=== PATIENT | male | born 1955 | race Caucasian/White ===

== ENCOUNTER 2018-11-24 05:43 | Outpatient (CLI) | payer BC, OTHER ==
[~2018-11-24] VITALS: Ht 180.3 cm; Wt 96.2 kg
[2018-11-24] MEDS ORDERED: LISI40TA PO (11:41)
[2018-11-24] MEDS ORDERED: METF-399 PO (11:41)
[2018-11-24] MEDS ORDERED: ATOR10TA66 PO (11:41)
== END 2018-11-24 12:01 | disposition home or self-care (01) ==
LOC: PREOP 05:43
PROVIDERS: ATTEND Surgery
DX: Z01.818 Encounter for other preprocedural examination (principal)

== ENCOUNTER 2018-11-27 08:24 | Day surgery (SDC) | payer BC, OTHER ==
[~2018-11-27] VITALS: Ht 180.3 cm; Wt 96.2 kg
[2018-11-27] VITALS (10 sets, daily range): BP systolic 110–163; BP diastolic 60–99
[~2018-11-27 08:24] MED LIST: ATOR10TA66 PO; LISI40TA PO; METF-399 PO
--- OUTSIDE RECORDS SUMMARY | 2018-11-27 08:29 | XMS REPORT | Clinical Summary ---
Author Author Admin, QIE Organization [facility] Address Unknown Phone Unavailable Allergies, Adverse Reactions, Alerts Allergy Name Reaction Description Start Date Severity Status Provider SULFA rash Moderate Active Carrie Elder PENICILLIN rash Moderate Active Carrie Elder Conditions or Problems Problem Name Problem Code Onset Date Status Entry Date Provider Comment Standard Description Annotate Elevated prostate specific antigen [PSA] 790.93 Active Renetta Bach MD Elevated prostate specific antigen [PSA] Medication List Medication Instructions Start Date Stop Date Generic Name NDC Status Provider Patient Instruction PREDNISONE 10 MG ORAL TABLET 1 tab by mouth daily PREDNISONE 29673159210 No Longer Active Renetta Bach MD Active DOXYCYCLINE HYCLATE 100 MG ORAL CAPSULE 1 cap by mouth twice daily DOXYCYCLINE HYCLATE 51782707487 No Longer Active Renetta Bach MD Active IBUPROFEN 200 MG ORAL TABLET 1 tab by mouth every 6 hours prn IBUPROFEN 93523004835 Active Carrie Elder Active ATORVASTATIN CALCIUM 40 MG ORAL TABLET 1 nightly, for cholesterol ATORVASTATIN CALCIUM 74837601961 Active Carrie Elder Active LISINOPRIL 10 MG ORAL TABLET 1 tablet by mouth daily LISINOPRIL 18017733928 Active Carrie Elder Active DOXYCYCLINE HYCLATE 100 MG ORAL CAPSULE 1 cap by mouth twice daily DOXYCYCLINE HYCLATE 100 MG ORAL CAPSULE 2550542 DOXYCYCLINE HYCLATE Inactive PREDNISONE 10 MG ORAL TABLET 1 tab by mouth daily PREDNISONE 10 MG ORAL TABLET 033568 PREDNISONE Inactive Vital Signs Date Name Value Unit Range Description blood pressure, diastolic 76 mm[Hg] BP cervantes blood pressure, systolic 146 mm[Hg] BP sys pulse rate E&M 76 /min Heart rate temperature E&M 98.2 [degF] Body temperature weight E&M 212 [lb_av] Weight Measured blood pressure, diastolic 94 mm[Hg] BP cervantes blood pressure, systolic 176 mm[Hg] BP sys pulse rate E&M 75 /min Heart rate temperature E&M 97.5 [degF] Body temperature weight E&M 212 [lb_av] Weight Measured blood pressure, diastolic 80 mm[Hg] BP cervantes blood pressure, systolic 120 mm[Hg] BP sys height E&M 71 [in_us] Bdy height pulse rate E&M 85 /min Heart rate temperature E&M 98.8 [degF] Body temperature weight E&M 217 [lb_av] Weight Measured Diagnostic Results Date Name Value Unit Range Description Chart Maintenance: Outside labs entered on Flowsheet - Chemistry prostate specific antigen 3.1 ng/mL Encounters Code Encounter Date Provider Facility CPT-29450 Level 2 Est. 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
--- OUTSIDE RECORDS SUMMARY | 2018-11-27 08:29 | XMS REPORT | Clinical Summary ---
Author Author Admin, NOLBERTO Organization [facility] Address Unknown Phone Unavailable Allergies, Adverse Reactions, [...] TABLET 1 tab by mouth daily PREDNISONE 14334237623 No Longer Active Renetta Bach MD Active DOXYCYCLINE HYCLATE 100 MG ORAL CAPSULE 1 cap by mouth twice daily DOXYCYCLINE HYCLATE 31795940521 No Longer Active Renetta Bach MD Active IBUPROFEN 200 MG ORAL TABLET 1 tab by mouth every 6 hours prn IBUPROFEN 68210414602 Active Carrie Elder Active ATORVASTATIN CALCIUM 40 MG ORAL TABLET 1 nightly, for cholesterol ATORVASTATIN CALCIUM 67620311850 Active Carrie Elder Active LISINOPRIL 10 MG ORAL TABLET 1 tablet by mouth daily LISINOPRIL 81157643522 Active Carrie Elder Active DOXYCYCLINE HYCLATE 100 MG ORAL CAPSULE 1 cap by mouth twice daily DOXYCYCLINE HYCLATE 100 MG ORAL CAPSULE 0108123 DOXYCYCLINE HYCLATE Inactive PREDNISONE 10 MG ORAL TABLET 1 tab by mouth daily PREDNISONE 10 MG ORAL TABLET 616643 PREDNISONE Inactive Vital Signs Date Name Value Unit Range Description blood pressure, diastolic 94 mm[Hg] BP cervantes [...] ng/mL Encounters Code Encounter Date Provider Facility CPT-84801 Level 3 New Patient 15:21:19 CDT J Maurilio Bach MD [facility] Procedures Code Procedure Name Date Entry Date Standard Description CPT-88167 Needle Biopsy - Prostate 20:57:40 CDT CPT-99465 Ultrasound - Prostatic for Bx 20:57:39 CDT
--- OUTSIDE RECORDS SUMMARY | 2018-11-27 08:29 | XMS REPORT | Clinical Summary ---
Author Author Admin, QIE Organization [facility] Address Unknown Phone Unavailable Allergies, Adverse Reactions, [...] Status Provider Patient Instruction PREDNISONE 10 MG TAB 1 tab by mouth daily PREDNISONE 88937196958 No Longer Active Renetta Bach MD Active DOXYCYCLINE HYCLATE 100 MG CAP 1 cap by mouth twice daily DOXYCYCLINE HYCLATE 09562195227 No Longer Active Renetta Bach MD Active IBUPROFEN 200 MG TAB 1 tab by mouth every 6 hours prn IBUPROFEN 52037894248 Active Carrie Elder Active ATORVASTATIN CALCIUM 40 MG TABS 1 nightly, for cholesterol ATORVASTATIN CALCIUM 36789322433 Active Carrie Elder Active LISINOPRIL 10 MG TABS 1 tablet by mouth daily LISINOPRIL 22263225815 Active Carrie Elder Active DOXYCYCLINE HYCLATE 100 MG CAP 1 cap by mouth twice daily DOXYCYCLINE HYCLATE 100 MG CAP 6327354 DOXYCYCLINE HYCLATE Inactive PREDNISONE 10 MG TAB 1 tab by mouth daily PREDNISONE 10 MG TAB 316934 PREDNISONE Inactive Vital Signs Date Name Value Unit Range Description blood pressure, diastolic - 8462-4 94 mm[Hg] BP cervantes blood pressure, systolic - 8480-6 176 mm[Hg] BP sys pulse rate E&M - 8867-4 75 /min Heart rate temperature E&M 97.5 [degF] Body temperature weight E&M - 3141-9 212 [lb_av] Weight Measured blood pressure, diastolic - 8462-4 80 mm[Hg] BP cervantes blood pressure, systolic - 8480-6 120 mm[Hg] BP sys height E&M - 8302-2 71 [in_us] Bdy height pulse rate E&M - 8867-4 85 /min Heart rate temperature E&M 98.8 [degF] Body temperature weight E&M - 3141-9 217 [lb_av] Weight Measured Encounters Code Encounter Date Provider Facility CPT-30049 Level 3 New Patient 15:21:19 CDT J Maurilio Bach MD [facility] Procedures Code Procedure Name Date Entry Date Standard Description CPT-58824 Needle Biopsy - Prostate 20:57:40 CDT CPT-61701 Ultrasound - Prostatic for Bx 20:57:39 CDT
--- OUTSIDE RECORDS SUMMARY | 2018-11-27 08:29 | XMS REPORT | Clinical Summary ---
Author Author Admin, QIE Organization [facility] Address Unknown Phone Unavailable Allergies, [...] TAB 1 tab by mouth daily PREDNISONE 03741207918 No Longer Active Renetta Bach MD Active DOXYCYCLINE HYCLATE 100 MG CAP 1 cap by mouth twice daily DOXYCYCLINE HYCLATE 78415861631 No Longer Active Renetta Bach MD Active IBUPROFEN 200 MG TAB 1 tab by mouth every 6 hours prn IBUPROFEN 51346798817 Active Carrie Elder Active ATORVASTATIN CALCIUM 40 MG TABS 1 nightly, for cholesterol ATORVASTATIN CALCIUM 30473151427 Active Carrie Elder Active LISINOPRIL 10 MG TABS 1 tablet by mouth daily LISINOPRIL 53403691960 Active Carrie Elder Active DOXYCYCLINE HYCLATE 100 MG CAP 1 cap by mouth twice daily DOXYCYCLINE HYCLATE 100 MG CAP 5995303 DOXYCYCLINE HYCLATE Inactive PREDNISONE 10 MG TAB 1 tab by mouth daily PREDNISONE 10 MG TAB 084853 PREDNISONE Inactive Vital Signs Date Name Value Unit Range Description blood pressure, diastolic - 8462-4 80 mm[Hg] BP cervantes blood pressure, systolic - 8480-6 120 mm[Hg] BP sys height E&M - 8302-2 71 [in_us] Bdy height pulse rate E&M - 8867-4 85 /min Heart rate temperature E&M 98.8 [degF] Body temperature weight E&M - 3141-9 217 [lb_av] Weight Measured Encounters Code Encounter Date Provider Facility CPT-89892 Level 3 New Patient 15:21:19 CDT J Maurilio Bach MD [facility] Procedures Code Procedure Name Date Entry Date Standard Description CPT-80853 Needle Biopsy - Prostate 20:57:40 CDT CPT-61451 Ultrasound - Prostatic for Bx 20:57:39 CDT
--- OUTSIDE RECORDS SUMMARY | 2018-11-27 08:29 | XMS REPORT | Clinical Summary ---
Demographics Home Phone Preferred Language Unknown Marital Status Unknown Gnosticist Affiliation Unknown Race Unknown Ethnic Group Unknown Author Author Admin, [facility] Organization [facility] Address Unknown Phone Unavailable Allergies, Adverse Reactions, Alerts Allergy Name Reaction Description Start Date Severity Status Provider SULFA rash Moderate Active Carrie Elder PENICILLIN rash Moderate Active Carrie Elder Conditions or Problems Problem Name Problem Code Onset Date Status Entry Date Provider Comment Standard Description Annotate Problems Unknown Active Medication List Medication Instructions Start Date Stop Date Generic Name NDC Status Provider Patient Instruction IBUPROFEN 200 MG TAB 1 tab by mouth every 6 hours prn IBUPROFEN 33933812310 Active Carrie Elder Active ATORVASTATIN CALCIUM 40 MG TABS 1 nightly, for cholesterol ATORVASTATIN CALCIUM 93004585998 Active Carrie Elder Active LISINOPRIL 10 MG TABS 1 tablet by mouth daily LISINOPRIL 66679083860 Active Carrie Elder Active DOXYCYCLINE HYCLATE 100 MG CAP 1 cap by mouth twice daily DOXYCYCLINE HYCLATE 28360941071 Active Carrie Elder Active PREDNISONE 10 MG TAB 1 tab by mouth daily PREDNISONE 46999234416 Active Carrie Elder Active
--- OUTSIDE RECORDS SUMMARY | 2018-11-27 08:30 | XMS REPORT | Clinical Summary ---
Author Author Admin, NOLBERTO Organization [facility] Address Unknown Phone Unavailable Allergies, Adverse Reactions, [...] TABLET 1 tab by mouth daily PREDNISONE 77304054108 No Longer Active Renetta Bach MD Active DOXYCYCLINE HYCLATE 100 MG ORAL CAPSULE 1 cap by mouth twice daily DOXYCYCLINE HYCLATE 23808599316 No Longer Active Renetta Bach MD Active IBUPROFEN 200 MG ORAL TABLET 1 tab by mouth every 6 hours prn IBUPROFEN 54947285455 Active Carrie Elder Active ATORVASTATIN CALCIUM 40 MG ORAL TABLET 1 nightly, for cholesterol ATORVASTATIN CALCIUM 51220634069 Active Carrie Elder Active LISINOPRIL 10 MG ORAL TABLET 1 tablet by mouth daily LISINOPRIL 70506693170 Active Carrie Elder Active DOXYCYCLINE HYCLATE 100 MG ORAL CAPSULE 1 cap by mouth twice daily DOXYCYCLINE HYCLATE 100 MG ORAL CAPSULE 0042508 DOXYCYCLINE HYCLATE Inactive PREDNISONE 10 MG ORAL TABLET 1 tab by mouth daily PREDNISONE 10 MG ORAL TABLET 277888 PREDNISONE Inactive Vital Signs Date Name Value [...] ng/mL Encounters Code Encounter Date Provider Facility CPT-63432 Level 2 Est. 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
--- OUTSIDE RECORDS SUMMARY | 2018-11-27 08:30 | XMS REPORT | Continuity of Care Document ---
Author Organization Unknown Address Unknown Allergies There is no data. Medications There is no data. Problems There is no data. Procedures There is no data. Results There is no data. Encounters ACCT No. Visit Date/Time Discharge Status Pt. Type Provider Facility Loc./Unit Complaint [id number] 04/13/2017 10:19:00 [facility] Unknown [email or web address] 09/27/2016 14:41:32 ACT Document Registration
--- OUTSIDE RECORDS SUMMARY | 2018-11-27 08:30 | XMS REPORT | Clinical Summary ---
Author Author Admin, NOLBERTO Organization [facility] Address Unknown Phone Unavailable Allergies, [...] TABLET 1 tab by mouth daily PREDNISONE 29807165180 No Longer Active Renetta Bach MD Active DOXYCYCLINE HYCLATE 100 MG ORAL CAPSULE 1 cap by mouth twice daily DOXYCYCLINE HYCLATE 90498216262 No Longer Active Renetta Bach MD Active IBUPROFEN 200 MG ORAL TABLET 1 tab by mouth every 6 hours prn IBUPROFEN 50712174584 Active Carrie Elder Active ATORVASTATIN CALCIUM 40 MG ORAL TABLET 1 nightly, for cholesterol ATORVASTATIN CALCIUM 68709463826 Active Carrie Elder Active LISINOPRIL 10 MG ORAL TABLET 1 tablet by mouth daily LISINOPRIL 01423414719 Active Carrie Elder Active DOXYCYCLINE HYCLATE 100 MG ORAL CAPSULE 1 cap by mouth twice daily DOXYCYCLINE HYCLATE 100 MG ORAL CAPSULE 9646878 DOXYCYCLINE HYCLATE Inactive PREDNISONE 10 MG ORAL TABLET 1 tab by mouth daily PREDNISONE 10 MG ORAL TABLET 692567 PREDNISONE Inactive Vital Signs Date Name Value [...] ng/mL Encounters Code Encounter Date Provider Facility CPT-36282 Level 2 Est. Patient 14:28:27 CLIENT LIAISON Renetta Bach MD [facility] CPT-36789 Level 3 New Patient 15:21:19 CDT Renetta Bach MD [facility] Procedures Code Procedure Name Date Entry Date Standard Description CPT-23854 Needle Biopsy - Prostate 20:57:40 CDT CPT-70028 Ultrasound - Prostatic for Bx 20:57:39 CDT
[2018-11-27] MEDS ORDERED: CLINDAMYCIN 600 MG/50 ML IVPB 50 ML IV ONE ×2 (08:41→09:00)
[2018-11-27] MEDS ORDERED: LACTATED RINGERS 1,000 ML IV PRN (08:57)
--- NOTE | 2018-11-27 10:02 | Progress Note-Pre Operative ---
Pre-Operative Progress Note H&P Reviewed The H&P was reviewed, patient examined and no changes noted. Time Seen by Provider: 09:59 Date H&P Reviewed: Nov 27, 2018 Time H&P Reviewed: 10:00 Pre-Operative Diagnosis: Incarcerated right inguinal hernia SHANI GUERRERO DO Nov 27, 2018 10:02
[2018-11-27] MEDS ORDERED: BUP/EPI 0.5% 1:200,000 (MARCAINE) 10ML VIAL IJ ONE (10:12)
[2018-11-27] MEDS ORDERED: MIDAZOLAM 2 MG/2 ML (VERSED) VIAL ONE (10:36)
[2018-11-27] MEDS ORDERED: proPOfol 200 MG/20 ML (DIPRIVAN) VIAL IV ONE (10:36)
[2018-11-27] MEDS ORDERED: LIDOCAINE PF 2% 5 ML (XYLOCAINE) VIAL ONE (10:36)
[2018-11-27] MEDS ORDERED: fentaNYL INJECTION 100 MCG/2 ML AMP ONE (10:37)
[2018-11-27] MEDS ORDERED: ONDANSETRON 4 MG/2 ML (SDV) Z0FRAN ONE (11:32)
[2018-11-27] MEDS ORDERED: SEVOFLURANE (ULTANE) 15 ML INHAL SOLN ONE ×2 (11:32→11:42)
--- NOTE | 2018-11-27 11:35 | Progress Note-Post Operative ---
Post-Operative Progess Note Surgeon (s)/Finance Intern (s) Surgeon SHANI GUERRERO DO Finance Intern: none Pre-Operative Diagnosis Incarcerated right inguinal hernia Post-Operative Diagnosis same Procedure & Operative Findings Date of Procedure 11/27/18 Procedure Performed/Findings RI with mesh placement Anesthesia Type GET Estimated Blood Loss Estimated blood loss (mL): scant Specimens/Packing Specimens Removed hernia sac SHANI GUERRERO DO Nov 27, 2018 11:35
[2018-11-27] MEDS ORDERED: ACHD5005 PO (11:36)
--- NOTE | 2018-11-27 11:37 | Discharge Inst-Surgical ---
Discharge Inst-Surgical Depart Medication/Instructions New, Converted or Re-Newed RX: RX Given to Pt/Family Patient Instructions Follow up Appt: Make appointment for 2 weeks. [phone] Instructions: No lifting greater than 20 pounds. No strenuous activity. May shower in 24 hours, no tub bath or soaking. Use incentive spirometer at home as directed. No Smoking Skin/Wound Care: May remove bandages in am. You need to leave the Dermabond on incision it will fall off on it's own. Symptoms to Report: Appetite Changes, Extremity Discoloration, Numbness/Tingling, Swelling Increased, Bleeding Excessive, Eyesight Changes, Pain Increased, Urine Color Change, Constipation(Persistent), Fever over 101 degree F, Pain/Pressure in chest, Urinating Difficulty, Cough Up/Vomit Blood, Heart Beat Irreg/Pounding, Pain/Pressure in jaw, Cramps in feet or legs, Lightheadedness, Pain/Pressure in shoulder, Diarrhea(Persistent), Memory Changes Suddenly, Questions/Concerns, Weight gain consecutive days, Dizziness/Fainting, Nausea/Vomiting, Shortness of Breath, Weight gain over 2 pounds If questions or concerns contact your physician Or seek help at emergency department. Activity Activity as Tolerated: Yes Activity Instructions: Avoid Stress to Incision Driving Instructions: No Driving/Refer to Dr. Rhodes Discharge Diet: No Restrictions Diet After 24 Hours: Clear Liquid if Nauseous If Any Problems/Questions/Issu: Contact Your Physician, Go to Emergency Room Skin/Wound Care Infection Signs and Symptoms: Increased Redness, Foul Odor of Wound, Increased Drainage, Skin Itchy or Has a Rash, Increased Swelling, Temperature Above 101 F Bathing Instructions: Shower Stitches/[place]/Dermabond Dis: Dermabond Ice Pack: Ice On and Off Site (as needed for pain) SHANI GUERRERO DO Nov 27, 2018 11:37
[2018-11-27] MEDS ORDERED: morphine INJ 10 MG/ML 1ML (SYR OR VIAL) IVP ONE (11:45)
[2018-11-27] MEDS ORDERED: PROMETHAZINE INJ 25 MG/ML (PHENERGAN) AMP IVP ONE (11:45)
[2018-11-27] MEDS ORDERED: HYDROmorphone 2 MG/ML VIAL (DILAUDID) IV ONE (11:45)
[2018-11-27] MEDS ORDERED: ONDANSETRON 4 MG/2 ML (SDV) Z0FRAN IVP PRN (11:45)
--- NOTE | 2018-11-27 12:45 | Anesthesia-General Post-Op ---
General Patient Condition Mental Status/LOC: Same as Preop Cardiovascular: Satisfactory Nausea/Vomiting: Absent Respiratory: Satisfactory Pain: Controlled Complications: Absent Post Op Complications Complications None Follow Up Care/Instructions Patient Instructions None needed. Anesthesia/Patient Condition Patient Condition Patient is doing well, no complaints, stable vital signs, no apparent adverse anesthesia problems. No complications reported per nursing. SUSAN MAHAJAN CRNA Nov 27, 2018 12:45
[2018-11-27] MEDS ORDERED: HYDROcodone/APAP 5 MG/325 MG (LORTAB) TAB PO ONE (13:15)
--- NOTE | 2018-11-27 14:30 | OPERATIVE REPORT ---
DATE OF SERVICE: PREOPERATIVE DIAGNOSIS: Incarcerated right inguinal hernia. POSTOPERATIVE DIAGNOSIS: Incarcerated right inguinal hernia. Indirect with direct component. PROCEDURE: Right inguinal herniorrhaphy with mesh placement. SURGEON: Carl Patrick DO. CHEMICAL DEPENDENCY NURSE: None. ANESTHESIA: General endotracheal tube. SPECIMEN: Hernia sac. BLOOD LOSS: Scant. FLUIDS: Per anesthesia. POSTOPERATIVE CONDITION: Stable. INDICATION FOR PROCEDURE: The patient is a 63-year-old male with complaint of bulging and pain in right inguinal region, diagnosed incarcerated inguinal hernia. FINDINGS: The patient had an incarcerated indirect inguinal hernia. He also had a little bit of a direct floor component. PROCEDURE NOTE: After informed consent was obtained, the patient was brought to the operating room, placed on the table in supine position, sterilely prepped and draped in normal fashion. Local lidocaine was used to perform ilioinguinal nerve block as well as pubic tubercle block and infiltrated the right inguinal region with local, then made an incision with #15 blade, carried down through the skin into subcutaneous tissue, deepened down to subcutaneous tissue with Bovie electrocautery down to the fascia of the external oblique. External oblique fascia was then infiltrated with local and incised to the external inguinal ring with Bovie electrocautery, then able to grasp the 2 edges with hemostats and dissected under them bluntly with a finger to create a space, then able to get under the cord and cord structures at the pubic tubercle. Got under them, placed a Joe drain, pulled this in inferolateral direction, found the indirect inguinal hernia, carefully peeled this off the cord and cord structures, opened it up, pushed the fat back in. This was an incarcerated inguinal hernia and then suture ligated with 0 Vicryl and then tied with 0 Vicryl, then closed the floor of the inguinal canal with 2-0 Vicryl 3 interrupted [id number] sutures to close this and then elected to place a right-sided Parietex mesh, trimmed to fit in the inguinal canal, then sutured the mesh at the pubic tubercle, encircled the cord with a precut hole and then placed the mesh up under the external oblique fascia, laid in nicely, copiously irrigated with normal saline, suctioned this out and then elected to close the external oblique fascia with a 3-0 Vicryl running suture, thereby recreating external inguinal ring and internal inguinal ring had been recreated with the mesh, then closed Cosmo's fascia with 3-0 Vicryl, 2 interrupted sutures, then closed the skin with 4-0 undyed Monocryl in running subcuticular fashion. Area was cleaned and dried. Dermabond placed and then a dressing. The patient tolerated the procedure. Sponge, instrument and needle count correct at the end of the case. Job ID: [id number] DocumentID: [id number] Dictated Date: 11/27/2018 11:33:53 Life Sciences Manager Date: 11/27/2018 14:29:08 Dictated By: DO JESSE FARIAS
== END 2018-11-27 13:30 | disposition home or self-care (01) ==
LOC: SDC 08:24
PROVIDERS: ATTEND Surgery
DX: K40.30 Unilateral inguinal hernia, with obstruction, without gangrene, not specified as recurrent (principal); K42.9 Umbilical hernia without obstruction or gangrene; I10 Essential (primary) hypertension; K21.9 Gastro-esophageal reflux disease without esophagitis; E11.9 Type 2 diabetes mellitus without complications; E66.9 Obesity, unspecified; Z68.29 Body mass index [BMI] 29.0-29.9, adult; Z90.49 Acquired absence of other specified parts of digestive tract; Z79.84 Long term (current) use of oral hypoglycemic drugs; Z79.899 Other long term (current) drug therapy; Z88.0 Allergy status to penicillin; Z88.2 Allergy status to sulfonamides; Z80.9 Family history of malignant neoplasm, unspecified; Z87.891 Personal history of nicotine dependence; Z87.442 Personal history of urinary calculi
CPT/HCPCS: 82962; 87081; 88302

== ENCOUNTER → 2020-09-08 | Outpatient (CLI) | payer BC ==
[~2020-09-08] MED LIST changes: +ACHD5005 PO; -LISI40TA PO; +LISI40TA9 PO
--- NOTE | 2020-09-08 14:10 | Diagnostic Imaging Report ---
INDICATION: Fall with left shoulder pain AP, oblique and lateral views of the left shoulder are obtained. FINDINGS: No acute fracture or dislocation is identified. No abnormal lytic or sclerotic focus is seen, and there is no radiopaque foreign body. IMPRESSION: No acute abnormality. Dictated by: Dictated on workstation # [id number]
== END ==
LOC: RAD FS 13:18
PROVIDERS: ATTEND Nurse Practitioner
DX: M25.512 Pain in left shoulder (principal); W19.XXXA Unspecified fall, initial encounter
CPT/HCPCS: 73030

== ENCOUNTER → 2020-09-16 | Outpatient (CLI) | payer BC ==
[~2020-09-16] MED LIST changes: +GADOBUTROL 15 MMOL/15 ML (GADAVIST) VIAL IV ONE; +HOLD METFORMIN - RECEIVED CONTRAST 20 ML VIAL IV SCH; +IOHEXOL 300 MG/ML 50 ML (OMNIPAQUE 300) VIAL IV ONE
--- NOTE | 2020-09-16 10:55 | Diagnostic Imaging Report ---
INDICATION: Pre-MRI screening AP and lateral view of the orbits obtained at 1009 a.m. There is no metallic foreign body over the orbits. There is no overt bony abnormality. IMPRESSION: No metallic foreign body over the orbits. Dictated by: Dictated on workstation # [id number]
--- NOTE | 2020-09-16 11:44 | Diagnostic Imaging Report ---
INDICATION: Left shoulder pain. Patient was brought to the procedure room and placed on table in the supine position. Skin of left shoulder was prepped and draped in usual sterile fashion. Small amount of 1% lidocaine was utilized for local anesthesia. A 22-gauge needle was advanced into left shoulder at the rotator interval. A 15 mL solution of iodinated contrast, normal saline and gadolinium was injected under fluoroscopic observation. Needle was withdrawn and hemostasis was obtained using manual compression. Patient tolerated the procedure well and was sent to MRI in satisfactory condition. 13 seconds of fluoroscopic time utilized. A single image was obtained. IMPRESSION: Successful left shoulder injection of gadolinium contrast solution, using fluoroscopy. Dictated by: Dictated on workstation # [id number]
--- NOTE | 2020-09-16 15:08 | Diagnostic Imaging Report ---
EXAMINATION: Magnetic resonance imaging of the left shoulder with intra-articular contrast. DATE: September 16, 2020. COMPARISON: Left shoulder arthrogram 12/17/2020. Left shoulder radiographs 09/08/2020. HISTORY: 65-year-old male, left shoulder injury 2 weeks ago. Left shoulder pain. TECHNIQUE: Magnetic Resonance Imaging sequences were performed of the shoulder following the intra-articular administration of contrast. FINDINGS: ROTATOR CUFF, LIGAMENTS, TENDONS, AND MUSCLES: There is supraspinatus tendinopathy. The infraspinatus and teres minor tendons are intact. The subscapularis tendon is intact. There is normal rotator cuff muscle bulk and signal. LONG HEAD OF BICEPS: The biceps labral attachment and long head of the biceps tendon is intact. The long head of the biceps tendon is normally positioned within the bicipital groove. GLENOHUMERAL JOINT: The humeral head is normally positioned relative to the glenoid. The labrum is intact. There is no identified paralabral cyst. The articular cartilage is grossly intact. There is no intra-articular body or prominent synovitis. ACROMIOCLAVICULAR JOINT: The acromioclavicular joint is normally aligned. The coracoclavicular and coracoacromial ligaments are intact. There are mild acromioclavicular degenerative changes without large undersurface osteophyte. BONE: There is no os acromiale. There is no Hill-Sachs deformity. There is a degenerative related subchondral cyst in the distal clavicle. There is a benign subcortical cyst in the lesser tuberosity of the proximal humerus. There is no acute fracture, bone contusion, or evidence of osteonecrosis. BURSAE AND SOFT TISSUES: The bursae and soft tissue surrounding the shoulder are unremarkable. IMPRESSION: 1. Supraspinatus tendinopathy. Negative for rotator cuff tendon tear. 2. Mild acromioclavicular degenerative changes without undersurface osteophyte. 3. Intact proximal long head of the biceps tendon. 4. No acute fracture, bone contusion, or evidence of osteonecrosis. 5. Intact labrum and unremarkable additional evaluation of the glenohumeral joint. Dictated by: Dictated on workstation # [id number]
== END ==
LOC: RAD 09:27
PROVIDERS: ATTEND Nurse Practitioner
DX: M19.012 Primary osteoarthritis, left shoulder (principal); M75.82 Other shoulder lesions, left shoulder
CPT/HCPCS: 23350; 73040; 73222

== ENCOUNTER 2023-02-13 05:36 | Outpatient (CLI) | payer MEDICARE ==
[~2023-02-13] VITALS: Ht 180.3 cm; Wt 99.9 kg
[~2023-02-13 05:36] MED LIST changes: -GADOBUTROL 15 MMOL/15 ML (GADAVIST) VIAL IV ONE; -HOLD METFORMIN - RECEIVED CONTRAST 20 ML VIAL IV SCH; -IOHEXOL 300 MG/ML 50 ML (OMNIPAQUE 300) VIAL IV ONE
[2023-02-13] MEDS ORDERED: PANT40TA52 PO (10:47)
[2023-02-13] MEDS ORDERED: ATOR40TA70 PO (10:47)
[2023-02-13] MEDS ORDERED: MELO7.5T46 PO (10:47)
[2023-02-13] MEDS ORDERED: GLIM2TAB4 PO (10:47)
[2023-02-13] MEDS ORDERED: METF-865 PO (10:47)
[2023-02-13] MEDS ORDERED: TMSL.4C PO (10:47)
[2023-02-13] MEDS ORDERED: LISI10TA25 PO (10:47)
== END 2023-02-13 10:50 | disposition home or self-care (01) ==
LOC: PREOP 05:36
PROVIDERS: ATTEND Surgery
DX: Z01.818 Encounter for other preprocedural examination (principal)

== ENCOUNTER 2023-02-25 07:33 | Day surgery (SDC) | payer BC, MEDICARE ==
[~2023-02-25] VITALS: Ht 180.3 cm; Wt 99.9 kg
[~2023-02-25 07:33] MED LIST changes: +ATOR40TA70 PO; +GLIM2TAB4 PO; +LISI10TA25 PO; +MELO7.5T46 PO; +METF-865 PO; +PANT40TA52 PO; +TMSL.4C PO
[2023-02-25] MEDS ORDERED: LACTATED RINGERS 1,000 ML 1,000 ML IV STA (07:36)
[2023-02-25 08:00] VITALS: BP 180/98
[2023-02-25] MEDS ORDERED: MIDAZOLAM INJ 2 MG/2 ML VIAL ONE (09:29)
[2023-02-25 10:00] VITALS: BP 100/57
--- NOTE | 2023-02-25 10:01 | Endoscopy Discharge Instruct ---
Endo Procedure/Findings Findings 1.: Polyp 2.: Diverticulosis 3.: Internal Hemorrhoids Discharge Instructions - Activity: You might feel a little sleepy until tomorrow. This is due to the medicine you received to relax you. Until tomorrow, you should: NOT drive a car, operate machinery or power tools. NOT drink any alcoholic beverages. NOT make any important decisions or sign importortant papers. Do not return to work until tomorrow, unless otherwise instructed. Resume previous activities tomorrow. Diet: Start by taking liquids. If you tolerate liquids, advance to solid food. 1.: Colonscopy in 5 years Notify Physician - If you experience excessive bleeding, unusual abdominal pain, fever, or chest pain, contact your doctor immediately. Follow-Up: Other Follow up in my office in one week SHANI GUERRERO DO Feb 25, 2023 10:01
--- NOTE | 2023-02-25 10:01 | Progress Note-Post Operative ---
Post-Operative Progess Note Surgeon (s)/Correspondence Renew Clerk (s) Surgeon SHANI GUERRERO DO Correspondence Renew Clerk: none Pre-Operative Diagnosis screening Post-Operative Diagnosis Polyps Diverticula int hemorrhoids Procedure & Operative Findings Date of Procedure 02/25/23 Procedure Performed/Findings Colonoscopy with snare polypectomy Colonoscopy with hot biopsy PROCEDURE NOTE: After informed consent was obtained, the patient was brought to the endoscopy suite, placed in bed in left lateral decubitus position. He was administered IV sedation by the SHUTTLE PREPARATION SUPERVISOR who then monitored his vitals the entire time, heart rate, blood pressure and pulse ox and the scope was inserted, found a small flat polyp in the rectum and elected to do a hot biopsy. Then pushed all the way to about 120 cm and pushed into the cecum, took a picture of appendiceal orifice and noted the ileocecal valve. Then slowly withdrew the scope insufflating to look circumferentially at the ferreira starting in the cecum, up the ascending colon to the hepatic flexure and then into the transverse colon. Just into the transverse colon I found a large polyp and wanted to remove the entire polyp; therefore, I used the snare to remove it completely. Continued to the splenic flexure and into the descending colon. I found another small flat polyp here and I did another hot biopsy. Finally, down into the sigmoid and then into the rectal vault. I retroflexed the scope and took a picture of the internal hemorrhoids. On the way in I had noted diverticula and took a picture of them. The patient tolerated the procedure. He was recovered in endoscopy suite. Recommended for repeat colonoscopy in 5 years. Anesthesia Type IV sedation by SHUTTLE PREPARATION SUPERVISOR Estimated Blood Loss Estimated blood loss (mL): scant Specimens/Packing Specimens Removed rectal polyp transverse colon polyp desc colon polyp SHANI GUERRERO DO Feb 25, 2023 10:01
[2023-02-25 10:05] VITALS: BP 112/61
[2023-02-25 10:10] VITALS: BP 112/61
[2023-02-25 10:30] VITALS: BP 126/84
[2023-02-25 10:36] VITALS: BP 126/84
--- NOTE | 2023-02-25 13:30 | Anesthesia-General Post-Op ---
MAC Patient Condition Mental Status/LOC: Same as Preop Cardiovascular: Satisfactory Nausea/Vomiting: Absent Respiratory: Satisfactory Pain: Controlled Complications: Absent Post Op Complications Complications None Follow Up Care/Instructions Patient Instructions None needed. Anesthesiology Discharge Order Discharge Order Patient is doing well, no complaints, stable vital signs, no apparent adverse anesthesia problems. No complications reported per nursing. GEOFFREY POTTS CRNA Feb 25, 2023 13:30
== END 2023-02-25 10:36 | disposition home or self-care (01) ==
LOC: ENDO 07:33
PROVIDERS: ATTEND Surgery
DX: Z12.11 Encounter for screening for malignant neoplasm of colon (principal); D12.3 Benign neoplasm of transverse colon; D12.4 Benign neoplasm of descending colon; K62.1 Rectal polyp; K57.30 Diverticulosis of large intestine without perforation or abscess without bleeding; K64.8 Other hemorrhoids; E11.9 Type 2 diabetes mellitus without complications; E66.9 Obesity, unspecified; Z79.84 Long term (current) use of oral hypoglycemic drugs; Z68.30 Body mass index [BMI] 30.0-30.9, adult
CPT/HCPCS: 82947